=== PATIENT | male | born 1935 | race Caucasian/White ===

== ENCOUNTER 2016-11-08 20:01 | Emergency (ER) | payer OTHER ==
[~2016-11-08 20:01] MED LIST: ASPIRIN ADULT L81 M1 PO; CLOPIDOGREL75 MG PO; ENALAPRIL MALEAT5 MG PO; FISH OIL1000 M1 PO; FISH OIL1200 MG PO; HYCET1 ML PO; HYDROCHLOROTHIA25 MG PO; LOSARTAN POTASS25 MG PO; MULTIVITAMIN1 TAB PO; SIMVASTATIN80 MG PO; VITAMIN C500 M1 PO; VITAMIN D-31000 UNIT PO
--- NOTE | 2016-11-08 20:55 | ED ORDER SUMMARY ---
..... Patient: MEREDITH CASTANO OrderSheet [facility] VisitID: [id number] [address] [place] [address] 81y, M Registration Date/Time: 11/08/2016 ORDER SHEET Weight: 68.0 kg (stated) Allergies: Phenergan, Reglan GENERAL ORDERS: MEDICATION ORDERS: Gelfoam 1 application (right mouth one now. do not swallow. ) (20:39 11/08/2016 Nguyễn Pandya) (Cancelled: Duplicate Order20:41 Nguyễn Pandya) Gelfoam 1 application (once now in the left mouth) (20:42 11/08/2016 Nguyễn Pandya) (20:44 Robert Peraza) IV FLUIDS: ORDER SHEET NOTES: [Electronically signed by You Meyers R.N. (22:00 11/08/2016)] [Electronically signed by Lul Albarran Dr. (05:37 11/10/2016)] [Electronically locked/signed by You Meyers R.N. (22:00 11/08/2016)]
--- NOTE | 2016-11-08 20:55 | ED NURSING NOTES ---
Clinical Report - Nurses [facility] [address] [place] [address] 11/08/2016 20:01 Patient: MEREDITH CASTANO TRIAGE Triage time 20:07. Acuity: LEVEL 4. Chief Complaint: (Bleeding in back of mouth). 20:17. Alert. SEPSIS SCREEN: Sepsis Screen. Negative (no infection suspected/documented). --20:18 You Meyers R.N. 20:07 11/08/16. BP: 186/80. HR: 92. RR: 16. O2 saturation: 98% on room air. Temp: 97.9 F (oral). Pain level now: 0/10. --20:18 You Meyers R.N. Weight: 68 kg stated. Height/Length: 67 inches Per Patient. BMI: 23.5. --20:17 You Meyers R.N. Medications Plavix Oral 75 mg, daily. --20:09 You Meyers R.N. PredniSONE Oral 15mg, daily. --20:10 You Meyers R.N. Folic Acid Oral (pt unsure of dose ). --20:10 You Meyers R.N. BP MED (pt unsure of dose ). --20:11 You Meyers R.N. Simvastatin Oral 80 mg, daily. --20:11 You Meyers R.N. ASA Oral 81mg , daily. --20:11 You Meyers R.N. Other meds pt can't remember. --20:12 You Meyers R.N. Vit -C . --20:13 You Meyers R.N. Vit -D. --20:13 You Meyers R.N. Fish Oil. --20:13 You Meyers R.N. Medication/allergy information source: the patient and patient's family. --20:18 You Meyers R.N. Allergies Phenergan. Reglan. --20:14 You Meyers R.N. History Arrived by private vehicle. Historian: patient. Accompanied by family. Primary physician (Fletcher). Location of injuries: mouth. 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 ( Patient reports that he was brushing his teeth when his mouth began to bleed). Treatment HEAVY MEDIA OPERATOR: None. Trauma activation: Pre-hospital notification of patient arrival was not received. PAST MEDICAL HX: Tetanus status: up-to-date. Immunizations: up-to-date. SOCIAL HX: Never smoker. Occasional alcohol use. No drug use. No infectious disease exposure. ABUSE ASSESSMENT: No report of abuse. FALL RISK ASSESSMENT: Fall risk assessment completed. No fall risk identified. NUTRITIONAL RISK ASSESSMENT: The nutritional risk assessment revealed no deficiencies. FUNCTIONAL ASSESSMENT: Functional assessment: no impairments noted. LEARNING NEEDS ASSESSMENT: The learning needs assessment revealed no barriers. SKIN INTEGRITY ASSESSMENT: Skin integrity risk assessment completed. No skin integrity risk identified. --20:18 You Meyers R.N. PROBLEMS: Hypertension. Hypercholesterolemia. Cancer. --20:16 You Meyers R.N. ADDITIONAL SURGERIES: Back Surgery. Colon Surgery. Hernia Repair. Total of 5 cardiac stents . --20:16 You Meyers R.N. Interventions ID band on patient. To treatment room. --20:18 You Meyers R.N. PHYSICAL ASSESSMENT 20:18. Ambulatory to room. GENERAL / NEURO / PSYCH: Alert. Oriented X 4. RESPIRATORY: Respirations not labored. SKIN: Skin intact. Skin is warm and dry. --20:19 You Meyers R.N. NURSING PROGRESS NOTES 20:20. Two patient identifiers checked. Call light placed in reach. Bed placed in lowest position. Brakes of bed on. --20:20 You Meyers R.N. 20:41 11/08/2016 GELFOAM Topical 1 application. (left mouth between lower molars and cheek). --20:44 You Meyers R.N. 21:40. The patient is calm and resting quietly. Overall patient status is improved. GENERAL / NEURO / PSYCH: Alert. Oriented X 4. RESPIRATORY: No respiratory distress. SKIN: Skin is warm and dry. --21:43 You Meyers R.N. DISPOSITION / DISCHARGE Departure time: 21:42. Condition at departure: stable. No learning barriers present. Discharge instructions provided and reviewed with the patient and spouse. Patient and spouse verbalized understanding. Written instructions provided in French. The patient was discharged home and accompanied by spouse. He left the Emergency Department ambulatory and via private vehicle. Spouse driving. FALL RISK ASSESSMENT: Fall risk assessment completed. No fall risk identified. --21:43 You Meyers R.N. 21:37 11/08/16. BP: 151/76. HR: 72. RR: 16. O2 saturation: 98%. Pain level now: 0/10. --21:43 You Meyers R.N. Locked/Released at 11/08/2016 22:00 by You Meyers R.N.
--- NOTE | 2016-11-08 20:55 | ED CLINICAL REPORT ---
Clinical Report - Physicians/Mid Levels [facility] [address] [place] [address] 11/08/2016 20:01 Patient: MEREDITH CASTANO Time Seen: 2029. Arrived- By private vehicle. Historian- patient. HISTORY OF PRESENT ILLNESS Chief Complaint: bleeding from the mouth. This started today and is still present but is improving. It was abrupt in onset and has been constant but is not gone now. At its maximum, severity described as severe. When seen in the E.D., severity described as moderate. Modifying factors. Not worsened by anything. Not relieved by anything. No fatigue or muscle aches. Denies sleep problem. No decreased urine output. (reports it happened while brushing teeth. reports no pain or injury anywhere. reports no bleeding from the nose). Similar symptoms previously: None. Recent medical care: Not recently seen/assessed. REVIEW OF SYSTEMS No fever, sore throat, nausea, vomiting or diarrhea. All systems otherwise negative, except as recorded above. PAST HISTORY See nurses notes. Medications: Fish Oil. Vit -D. Vit -C . Other meds pt can't remember. ASA Oral 81mg , daily. Simvastatin Oral 80 mg, daily. BP MED (pt unsure of dose ). Folic Acid Oral (pt unsure of dose ). PredniSONE Oral 15mg, daily. Plavix Oral 75 mg, daily. Allergies: Phenergan. Reglan. SOCIAL HISTORY Never smoker. No alcohol use or drug use. No recent travel. Is a local resident. ADDITIONAL NOTES The nursing notes have been reviewed. PHYSICAL EXAM Vital Signs: 11/08/2016 20:07 BP: 186/80. HR: 92. RR: 16. O2 saturation: 98%. Temp: 97.9 F. Pain level now: 0/10. Oxygen saturation normal. Appearance: Alert. No acute distress. Eyes: Pupils equal, round and reactive to light. Eyes normal inspection. ENT: Ears normal. Nose normal. Pharynx normal. (bleeding from the gums in the upper left maxillary gums. no abscess. no signs of dental trauma. no bleeding to the nose. no masses. no signs of thrush.). Neck: Normal inspection. Neck supple. CVS: Normal heart rate and rhythm. Heart sounds normal. Pulses normal. Respiratory: No respiratory distress. Breath sounds normal. Chest nontender. Abdomen: No visible injury. Soft and nontender. Bowel sounds normal. Skin: Skin warm and dry. Normal skin color. No rash. Normal skin turgor. PROGRESS AND PROCEDURES Course of Care: he patient is a pleasant 81-year-old male presenting for evaluation of bleeding from the gums. The patient reports havingbrushing his teeth during the onset of the bleeding. Patient is on Plavix. Because of the amount of blood noted on patient's examination, I offered patient a blood draw forevaluation of blood count. The patient declined offers of bloodlaboratory tests obtainedbecause patient reports he gets these done regularly. Discussed with patient risks and benefits of doing thelaboratory work. Patient is agreeable to the risks and benefits of the blood tests not being performed Patient reports that if he does not have improvement with his bleeding he will reconsider doing thelab tests. Medications forenhancing clot formation have been provided. Patient was reevaluated and the gauze was not placed in the appropriate area. He was repositionedand patient will be reevaluated afterthe gauze is on forat least another 15 minutes. Patient was reevaluated and found to have significant improvement with his bleeding once the gauze was placed in the appropriate area. Patient was encouraged to use a soft bristle toothbrush and shubham aware ofpossible injuries to the gumsand bleeding risks on Plavix. Discussed with patient workup here in the emergency department, diagnosis, home care, follow-up, and return precautions. All questions have been answered. The patient expressed understanding of these instructions and was agreeable to them. Disposition: Discharged. Condition: good. CLINICAL IMPRESSION 11/08/2016 20:07 BP: 186/80. HR: 92. RR: 16. O2 saturation: 98%. Temp: 97.9 F. Pain level now: 0/10. Hypertensive. Oxygen saturation normal. Essential hypertension. acute oral hemorrhage. INSTRUCTIONS (try using a soft bristled tooth brush). Warnings: GENERAL WARNINGS: Return or contact your physician immediately if your condition worsens or changes unexpectedly, if not improving as expected, or if other problems arise. Specifically return if pain, vomiting, bleeding, breathing difficulty or fever. light headed, dizziness, weakness, other concerns. Your Current Medications: CONTINUE TAKING THE FOLLOWING MEDICATIONS: ASA Oral : 81mg daily. BP MED * : pt unsure of dose. Fish Oil*. Folic Acid Oral : pt unsure of dose. Other meds pt can't remember*. Plavix Oral : 75 mg daily. PredniSONE Oral : 15mg daily. Simvastatin Oral : 80 mg daily. Vit -C *. Vit -D*. Follow-up: Return to the emergency department as needed. Follow up with your doctor in three days. Reason for referral: recheck today's concerns. Summary of care provided to patient via paper. Screening today revealed the patient's blood pressure to be in the hypertensive range. Blood pressure screening was not performed during this visit because the patient has an active diagnosis of hypertension. The patient should follow up with a primary care provider for blood pressure management. Understanding of the discharge instructions verbalized by patient. (Electronically signed by Lul Albarran Dr. 11/10/2016 5:37)
--- NOTE | 2016-11-08 20:55 | ED ORDER SUMMARY ---
..... Patient: MEREDITH CASTANO OrderSheet [facility] VisitID: [id number] [address] [place] [address] 81y, M Registration Date/Time: 11/08/2016 ORDER SHEET Weight: 68.0 kg (stated) Allergies: Phenergan, Reglan GENERAL ORDERS: MEDICATION ORDERS: Gelfoam 1 application (right mouth one now. do not swallow. ) (20:39 11/08/2016 Nguyễn Pandya) (Cancelled: Duplicate Order20:41 Nguyễn Pandya) Gelfoam 1 application (once now in the left mouth) (20:42 11/08/2016 Nguyễn Pandya) (20:44 Robert Peraza) IV FLUIDS: ORDER SHEET NOTES: [Electronically signed by You Meyers R.N. (22:00 11/08/2016)] [Electronically signed by Lul Albarran Dr. (05:37 11/10/2016)] [Electronically locked/signed by You Meyers R.N. (22:00 11/08/2016)]
--- NOTE | 2016-11-08 20:55 | ED NURSING NOTES ---
Clinical Report - Nurses [facility] [address] [place] [address] 11/08/2016 20:01 Patient: MEREDITH CASTAON TRIAGE Triage time 20:07. Acuity: LEVEL 4. Chief Complaint: (Bleeding in back of mouth). 20:17. Alert. SEPSIS SCREEN: Sepsis Screen. Negative (no infection suspected/documented). --20:18 You Meyers R.N. 20:07 11/08/16. BP: 186/80. HR: 92. RR: 16. O2 saturation: 98% on room air. Temp: 97.9 F (oral). Pain level now: 0/10. --20:18 You Meyers R.N. Weight: 68 kg stated. Height/Length: 67 inches Per Patient. BMI: 23.5. --20:17 You Meyers R.N. Medications Plavix Oral 75 mg, daily. --20:09 You Meyers R.N. PredniSONE Oral 15mg, daily. --20:10 You Meyers R.N. Folic Acid Oral (pt unsure of dose ). --20:10 You Meyers R.N. BP MED (pt unsure of dose ). --20:11 You Meyers R.N. Simvastatin Oral 80 mg, daily. --20:11 You Meyers R.N. ASA Oral 81mg , daily. --20:11 You Meyers R.N. Other meds pt can't remember. --20:12 You Meyers R.N. Vit -C . --20:13 You Meyers R.N. Vit -D. --20:13 You Meyers R.N. Fish Oil. --20:13 You Meyers R.N. Medication/allergy information source: the patient and patient's family. --20:18 You Meyers R.N. Allergies Phenergan. Reglan. --20:14 You Meyers R.N. History Arrived by private vehicle. Historian: patient. Accompanied by family. Primary physician (Fletcher). Location of injuries: mouth. 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 ( Patient reports that he was brushing his teeth when his mouth began to bleed). Treatment OIL BURNER REPAIRER: None. Trauma activation: Pre-hospital notification of patient arrival was not received. PAST MEDICAL HX: Tetanus status: up-to-date. Immunizations: up-to-date. SOCIAL HX: Never smoker. Occasional alcohol use. No drug use. No infectious disease exposure. ABUSE ASSESSMENT: No report of abuse. FALL RISK ASSESSMENT: Fall risk assessment completed. No fall risk identified. NUTRITIONAL RISK ASSESSMENT: The nutritional risk assessment revealed no deficiencies. FUNCTIONAL ASSESSMENT: Functional assessment: no impairments noted. LEARNING NEEDS ASSESSMENT: The learning needs assessment revealed no barriers. SKIN INTEGRITY ASSESSMENT: Skin integrity risk assessment completed. No skin integrity risk identified. --20:18 You Meyers R.N. PROBLEMS: Hypertension. Hypercholesterolemia. Cancer. --20:16 You Meyers R.N. ADDITIONAL SURGERIES: Back Surgery. Colon Surgery. Hernia Repair. Total of 5 cardiac stents . --20:16 You Meyers R.N. Interventions ID band on patient. To treatment room. --20:18 You Meyers R.N. PHYSICAL ASSESSMENT 20:18. Ambulatory to room. GENERAL / NEURO / PSYCH: Alert. Oriented X 4. RESPIRATORY: Respirations not labored. SKIN: Skin intact. Skin is warm and dry. --20:19 You Meyers R.N. NURSING PROGRESS NOTES 20:20. Two patient identifiers checked. Call light placed in reach. Bed placed in lowest position. Brakes of bed on. --20:20 You Meyers R.N. 20:41 11/08/2016 GELFOAM Topical 1 application. (left mouth between lower molars and cheek). --20:44 You Meyers R.N. 21:40. The patient is calm and resting quietly. Overall patient status is improved. GENERAL / NEURO / PSYCH: Alert. Oriented X 4. RESPIRATORY: No respiratory distress. SKIN: Skin is warm and dry. --21:43 You Meyers R.N. DISPOSITION / DISCHARGE Departure time: 21:42. Condition at departure: stable. No learning barriers present. Discharge instructions provided and reviewed with the patient and spouse. Patient and spouse verbalized understanding. Written instructions provided in Polish. The patient was discharged home and accompanied by spouse. He left the Emergency Department ambulatory and via private vehicle. Spouse driving. FALL RISK ASSESSMENT: Fall risk assessment completed. No fall risk identified. --21:43 You Meyers R.N. 21:37 11/08/16. BP: 151/76. HR: 72. RR: 16. O2 saturation: 98%. Pain level now: 0/10. --21:43 You Meyers R.N. Locked/Released at 11/08/2016 22:00 by You Meyers R.N.
--- NOTE | 2016-11-10 05:37 | ED MAR SUMMARY ---
..... Medication Administration Record [facility] [address] [place] [place] [address] Patient: MEREDITH CASTANO Visit ID: [id number] 81y, M Weight: 68.0 kg Height/Length: 67 in BMI: 23.5 ALLERGIES: Reglan, Phenergan Given 20:41 11/08/2016 You Meyers R.N. Medication Administered: GELFOAM, Dose: 1 application Topical. Medication Ordered: Gelfoam 1 application (once now in the left mouth).
--- NOTE | 2016-11-10 05:37 | ED MAR SUMMARY ---
..... Medication Administration Record Located Within [facility] [address] [place] [address] Patient: MEREDITH CASTANO Visit ID: [id number] 81y, M Weight: 68.0 kg Height/Length: 67 in BMI: 23.5 ALLERGIES: Reglan, Phenergan Given 20:41 11/08/2016 You Meyers R.N. Medication Administered: GELFOAM, Dose: 1 application Topical. Medication Ordered: Gelfoam 1 application (once now in the left mouth).
--- NOTE | 2016-11-10 05:37 | ED MED RECONCILIATION SUMMARY ---
Patient: MEREDITH CASTANO Medication Reconciliation Report [facility] VisitID: [id number] [address] [place] [address] 81y, M Registration Date/Time: 11/08/2016 Weight: 68.0 kg Height/Length: 67 in. BMI: 23.5 ALLERGIES: Phenergan, Reglan The patient's Home Medications are listed below: CONTINUE TAKING THE FOLLOWING MEDICATIONS: ASA Oral 81mg , daily BP MED , pt unsure of dose Fish Oil Folic Acid Oral, pt unsure of dose Other meds pt can't remember Plavix Oral 75 mg, daily PredniSONE Oral 15mg, daily Simvastatin Oral 80 mg, daily Vit -C Vit -D The source(s) of the original Home Medication information: patient's family member patient The following Medications were given to the patient in the Emergency Department: GELFOAM Topical 1 application, administered: 11/08/2016 8:41:00 PM The following Medications were prescribed to the patient: None.
--- NOTE | 2016-11-10 05:37 | ED DISCHARGE INSTRUCTIONS ---
Patient: MEREDITH CASTANO General Instructions [facility] VisitID: [id number] [address] [place] [address] 81y, M Registration Date/Time: 11/08/2016 11/08/2016 20:07 BP: 186/80. HR: 92. RR: 16. O2 saturation: 98%. Temp: 97.9 F. Pain level now: 0/10. Hypertensive. Oxygen saturation normal. Essential hypertension. acute oral hemorrhage. INSTRUCTIONS (try using a soft bristled tooth brush). Warnings: GENERAL WARNINGS: Return or contact your physician immediately if your condition worsens or changes unexpectedly, if not improving as expected, or if other problems arise. Specifically return if pain, vomiting, bleeding, breathing difficulty or fever. light headed, dizziness, weakness, other concerns. Your Current Medications: CONTINUE TAKING THE FOLLOWING MEDICATIONS: ASA Oral : 81mg daily. BP MED * : pt unsure of dose. Fish Oil*. Folic Acid Oral : pt unsure of dose. Other meds pt can't remember*. Plavix Oral : 75 mg daily. PredniSONE Oral : 15mg daily. Simvastatin Oral : 80 mg daily. Vit -C *. Vit -D*. Follow-up: Return to the emergency department as needed. Follow up with your doctor in three days. Reason for referral: recheck today's concerns. Summary of care provided to patient via paper. Screening today revealed the patient's blood pressure to be in the hypertensive range. Blood pressure screening was not performed during this visit because the patient has an active diagnosis of hypertension. The patient should follow up with a primary care provider for blood pressure management. Understanding of the discharge instructions verbalized by patient. ADDITIONAL INFORMATION High Blood Pressure --Established High Blood Pressure (Hypertension) is a chronic disease. The cause is unknown in most cases. It can usually be controlled with lifestyle changes and/or medicines. Symptoms of high blood pressure may include headache, dizziness, visual changes, chest pain and shortness of breath. Sometimes it causes no symptoms at all. However, even if there are no symptoms, untreated high blood pressure increases the risk of heart attack, also known as acute myocardial infarction, or AMI, and stroke. It is a serious health risk and should not be ignored. A normal blood pressure is 120/80 or less. The first (top) number is the "systolic" pressure. The second (bottom) number is the "diastolic" pressure. Hypertension exists when either the top number is 140 or higher, OR the bottom number is 90 or higher on repeated measurements. Home Care: All patients with high blood pressure should do the following to lower their pressure. If you are on medicines, then these methods may reduce or eliminate your need for medicines in the future. Begin a weight loss program if you are overweight. Reduce your salt intake. Avoid high salt foods (olives, pickles, smoked meats, salted potato chips, etc.). Do not add salt to your food at the table. Use only small amounts of salt when cooking. Begin an exercise program. Discuss with your doctor what type of exercise program would be best for you. It doesn't have to be difficult. Even brisk walking for 20 minutes three times a week is a good form of exercise. Avoid medicines which contain heart stimulants. This includes many cold and sinus decongestant pills and sprays as well as diet pills. Check the warnings about hypertension on the label. Stimulants such as amphetamine or cocaine could be lethal for someone with hypertension. Never take these. Limit your caffeine intake or switch to caffeine-free products. Stop smoking. If you are a long-time smoker, this can be hard. Enroll in a stop-smoking program to improve your chance of success. Learning how to handle stress better is an important part of any program to lower blood pressure. Learn about relaxation methods such as meditation, yoga or biofeedback. If medicines were prescribed, take them exactly as directed. Missing doses may cause your blood pressure get out of control. Consider buying an automatic blood pressure machine (available at most pharmacies). Use this to monitor your blood pressure at home and report the results to your doctor. Follow Up: Regular visits to your own physician for blood pressure checks and medicine adjustment is an important part of your care. Make a follow-up appointment as directed by our staff. Get Prompt Medical Attention if any of the following occur: Chest pain or shortness of breath Severe headache Throbbing or rushing sound in the ears Nosebleed Sudden severe abdominal pain Extreme drowsiness, confusion or fainting Dizziness or vertigo (dizziness with spinning sensation) Weakness of an arm or leg or one side of the face Difficulty with speech or vision You have been given the following additional information: Hypertension, Established (Electronically signed by Lul Albarran Dr. 11/10/2016 5:37)
--- NOTE | 2016-11-10 05:37 | ED MED RECONCILIATION SUMMARY ---
Patient: MEREDITH CASTANO Medication Reconciliation Report [facility] VisitID: [id number] [address] [place] [address] 81y, M Registration Date/Time: 11/08/2016 Weight: 68.0 kg Height/Length: 67 in. BMI: 23.5 ALLERGIES: Phenergan, Reglan The patient's Home Medications are listed below: CONTINUE TAKING THE FOLLOWING MEDICATIONS: ASA Oral 81mg , daily BP MED , pt unsure of dose Fish Oil Folic Acid Oral, pt unsure of dose Other meds pt can't remember Plavix Oral 75 mg, daily PredniSONE Oral 15mg, daily Simvastatin Oral 80 mg, daily Vit -C Vit -D The source(s) of the original Home Medication information: patient's family member patient The following Medications were given to the patient in the Emergency Department: GELFOAM Topical 1 application, administered: 11/08/2016 8:41:00 PM The following Medications were prescribed to the patient: None.
== END 2016-11-08 21:42 | disposition home or self-care (01) ==
LOC: ED SRH 20:01
DX: K13.79 Other lesions of oral mucosa (principal); I10 Essential (primary) hypertension; Z79.82 Long term (current) use of aspirin; Z79.52 Long term (current) use of systemic steroids; Z79.899 Other long term (current) drug therapy; Z88.8 Allergy status to other drugs, medicaments and biological substances